=== PATIENT | male | born 1995 | race African-American/Black ===

== ENCOUNTER 2022-05-25 16:14 | Emergency (ER) | payer MEDICAID ==
[2022-05-25 17:43] LABS: URINE BILIRUBIN - DIPSTICK NEGATIVE (NEGATIVE); URINE BLOOD DIPSTICK NEGATIVE (NEGATIVE); URINE COLOR YELLOW; URINE GLUCOSE - DIPSTICK NEGATIVE (NEGATIVE); URINE KETONE NEGATIVE (NEGATIVE); URINE LEUK ESTERASE NEGATIVE (NEGATIVE); URINE PH 6.5 (4.5-8.0); URINE PROTEIN - DIPSTICK NEGATIVE (NEG-TRACE); URINE SPECIFIC GRAVITY >=1.030; URINE UROBILINOGEN - DIPSTICK 0.2 E.U./dL (0.2)
[2022-05-25 17:45] LABS: URINE NITRITE - DIPSTICK NEGATIVE (Negative)
[2022-05-25 17:58] VITALS: BP 112/71
[2022-05-25 18:00] VITALS: BP 107/67
[2022-05-25 18:15] VITALS: BP 97/59
[2022-05-25 18:30] VITALS: BP 105/58
[2022-05-25 18:45] VITALS: BP 110/61
[2022-05-25] MEDS ORDERED: OMNICEF300 M1 PO (18:54)
[2022-05-25 19:00] VITALS: BP 103/63
== END 2022-05-25 19:07 | disposition home or self-care (01) ==
LOC: ED 16:14
PROVIDERS: Family Medicine
DX: R35.0 Frequency of micturition (principal); R05.9 Cough, unspecified; Z20.822 Contact with and (suspected) exposure to COVID-19